=== PATIENT | male | born 1945 | race Caucasian/White ===

== ENCOUNTER 2023-04-24 14:48 | Emergency (ER) | payer MEDICARE, OTHER, SELFPAY ==
[2023-04-24 14:51] VITALS: BP 108/80
--- NOTE | 2023-04-24 16:45 | ED.GENMED ---
History of Present Illness
General
Chief Complaint: Fall
Source: patient
Exam Limitations: none
Time Seen by Provider: 04/24/23 16:25
Travel History
Have you had any contact with someone who has COVID-19?: No
Do you have any symptoms of coronavirus? Fever > 100 degrees, chills, cough, shortness of breath, sore throat, loss of taste or smell, muscle aches, or headache?: No
History of Present Illness
History of Present Illness:
78-year-old male on Coumadin for history of factor V Leyden and history of lung cancer presents with family who states patient started with confusion yesterday. 4 days ago he fell in the house and may have hit his head. He was asymptomatic until
yesterday. He has been forgetting things that are typically known to him. They noted him to be quite confused and repeating himself at times patient denies headache or neck pain. No recent fever. No cough. No chest pain or shortness of breath.
Patient is chronically on 3 L of oxygen. Patient has been under a lot of stress. No other complaints at this time.
Past History
Past History
ED Past Medical History: Cancer, COPD, HTN and Other (COPD, multiple PEs in the past, maintained on Coumadin, factor V Leiden deficiency, rheumatoid arthritis, movement disorder, chronic pain syndrome, Sjogren syndrome, insomnia RA)
ED Past Surgical History: Cardiac, Orthopedic (Left knee replacement, back fusion) and Other (Hernia repair)
Social History
Tobacco: Former smoker
Alcohol: None
Drug: None
Personal:
Living: with family
Employment: Retired
Family History
Family History: Other
Phy Exam
Physical Exam
Physical Exam:
General: Well-appearing male no acute respiratory distress
HEENT: Normocephalic atraumatic pupils equal round reactive to light TMs normal
Heart: Regular rate and rhythm no murmurs
Lungs: Clear to auscultation bilaterally no wheezing
Neurologic exam: Alert oriented to person and place no facial asymmetry no drift finger-nose [id number] intact.
Musculoskeletal exam: Cervical spine nontender good range of motion all extremities
Abdomen soft nontender nondistended no guarding or rebound normal bowel
Course
Orders/Labs/Results
Orders:
Orders
04/24/23 15:03
CT Head W/o Iv Contrast Urgent
Comment:
Reason For Exam: fell two days ago and hit head . on coumadin
04/24/23 16:41
CR Chest - 2 Views Urgent
Comment:
Reason For Exam: cough
04/24/23 16:46
COVID-19 Antigen Urgent
Source: Nasal Swab
Complete Blood Count/With Diff Urgent
Comprehensive Metabolic Panel Urgent
Influenza A+B Rapid Molecular Urgent
RENY Source: Nasal Swab
Specimen Description:
04/24/23 18:28
Urinalysis Reflex To Culture Urgent
Date Specimen was Collected: 04/24/23
Time Specimen was Collected: 16:56
04/24/23 19:36
Doxycycline [Vibramycin] 100 mg PO NOW STA
Abnormal Lab Results
04/24/23
16:46
RBC 3.15 L 10^6/uL
(4.70-6.10)
Hgb 10.6 L g/dL
(13.0-18.0)
Hct 31.7 L %
(39.0-52.0)
MCV 100.6 H fL
(80.0-94.0)
MCH 33.7 H pg
(27.0-31.0)
Absolute Lymphs (auto) 0.9 L 10^3/uL
(1.2-3.4)
Absolute Monos (auto) 0.7 H 10^3/uL
(0.1-0.6)
Lymphocytes % 11.9 L %
(20.5-51.1)
Monocytes % 9.6 H %
(1.7-9.3)
Potassium 5.2 H mmol/L
(3.5-5.1)
BUN 44 H mg/dl
(9-20)
Creatinine 1.4 H mg/dL
(0.7-1.3)
Glucose 103 H mg/dl
(70-99)
04/24/23 16:46
04/24/23 16:46
Vital Signs
Initial and Last Documented VS:
Initial Vital Signs
Temp Pulse Resp BP Pulse Ox
98.1 F 68 16 108/80 96
04/24/23 14:51 04/24/23 14:51 04/24/23 14:51 04/24/23 14:51 04/24/23 14:51
Last Documented Vital Signs
Temp Pulse Resp BP Pulse Ox
98.1 F 68 16 108/80 96
04/24/23 14:51 04/24/23 14:51 04/24/23 14:51 04/24/23 14:51 04/24/23 14:51
MDM/Problems Addressed
Differential Diagnosis Includes:
Confusion following head injury. Consider concussion versus intracranial hemorrhage given anticoagulated state. CT scan of the head was ordered which I reviewed and is negative. Patient started abruptly with confusion. Consider other sources
such as infectious source UTI versus COVID versus flu versus electrolyte abnormality. Also consider transient global amnesia.
*Critical Care Note
Total Time (30-74mins, 75-104mins- exclusive of procedures): Not Applicable
Update Note
Update Note:
Workup demonstrates possible right perihilar infiltrate. Patient is coughing. Not hypoxic on his normal 3 L of oxygen. Labs/vitals do not suggest sepsis. Will start doxycycline given penicillin allergy. Discussed other treatment options with
family they would prefer to him to go home and see how it goes. Stable for discharge
ED Attending Note
-
Portions of this chart may have been created with voice recognition software.� Occasional wrong word or��sound alike� substitutions may have occurred due to the inherent limitations of voice recognition software.
Discharge Plan
Departure
Patient Disposition: Home (Routine Discharge)
Date of Disposition: 04/24/23
Time of Disposition: 19:37
Patient with high blood pressure during this ER visit?: No
Discharge Problem:
Altered mental status
Instructions: Pneumonia
Prescriptions:
New
doxycycline hyclate 100 mg tablet
100 mg PO BID Qty: 14 0RF
No Action
fentanyl 50 MCG patch 72 hour
50 mcg transdermal Q48H
Patient Comments:
12/05/2022: last filled 11/23/22, 15 patches for 30 days from [facility], upper left chest by shoulder
sertraline 100 MG tablet
200 mg PO DAILY
albuterol sulfate 1 PUFF HFA aerosol inhaler
2 puff inhalation R Q4HPRN PRN (Reason: sob)
cevimeline [Evoxac] 30 MG capsule
30 mg PO QID
Patient Comments:
12/05/2022: Spouse has medication with them
warfarin [Jantoven] 5 MG tablet
2.5 mg PO FR@1800
Patient Comments:
hydromorphone 4 MG tablet
4 mg PO TID
Patient Comments:
12/05/2022: last filled 11/18/22, 90 tabs for 30 days from [facility]
folic acid 1 mg Tablet
1 mg PO DAILY
zolpidem 12.5 mg tablet,ext release multiphase
12.5 mg PO HS
Patient Comments:
12/05/2022: last filled 11/16/22, 30 tabs for 30 days from [facility]
therapeutic multivitamin Tablet
1 tab PO DAILY
warfarin 5 mg Tablet
5 mg PO SUMOTUWETHSA@1800
Incruse Ellipta 62.5 mcg/actuation Blister With Device
1 inh INHALATION R HS
sennosides [Senna Lax] 8.6 mg Tablet
17.2 mg PO HS Qty: 30 0RF
polyethylene glycol 3350 [HealthyLax] 17 gram Powder In Packet
17 g PO BID Qty: 30 0RF
midodrine 5 mg Tablet
5 mg PO Q4HPRN PRN (Reason: sbp<90) Qty: 30 0RF
pantoprazole 40 mg Tablet,Delayed Release (Dr/Ec)
40 mg PO DAILY Qty: 30 0RF
cyclobenzaprine 10 MG tablet
10 mg PO TID
Referrals:
Vignesh Guzman MD [Family Provider] -
Activity Restrictions/Additional Instructions:
Take antibiotics as directed. Please return here for worsening symptoms otherwise to follow-up with your treating physicians
Interventions
Interventions:
*Risk Screen - Suicide Last Done: 04/24/23 18:11
*Neglect/Abuse Screening Last Done: 04/24/23 18:11
*ED COVID-19 Vaccine History Last Done: 04/24/23 14:51
ED-Musculoskeletal Assessment Last Done: 04/24/23 15:58
ED- Neurological Assessment Last Done: 04/24/23 15:58
ED-Skin Assessment Last Done: 04/24/23 15:58
[2023-04-24 17:05] LABS: % Basophils 0.5 % (0-2); % Eosinophils 5.2 % (0-6); % Immature Granulocytes 0.4 % (0-0.5); % Lymphocytes 11.9 % (20.5-51.1); % Monocytes 9.6 % (1.7-9.3); % Neutrophils 72.4 % (42.2-75.2); Absolute Eosinophils 0.4 10^3/uL (0-0.7); Absolute Lymphocytes 0.9 10^3/uL (1.2-3.4); Absolute Monocytes 0.7 10^3/uL (0.1-0.6); Absolute Neutrophils 5.6 10^3/uL (1.4-6.5); Hematocrit 31.7 % (39.0-52.0); Hemoglobin 10.6 g/dL (13.0-18.0); Mean Corp Hgb Conc. 33.4 g/dL (33.0-37.0); Mean Corpuscular Hgb 33.7 pg (27.0-31.0); Mean Corpuscular Volume 100.6 fL (80.0-94.0); Nucleated Red Blood Cells % 0 % (-); Platelet Count 185 10^3/uL (130-400); Red Blood Cell Count 3.15 10^6/uL (4.70-6.10); Red Cell Dist. Width 14.3 % (11.5-14.5); White Blood Cell Count 7.7 10^3/uL (4.8-10.8)
[2023-04-24 17:13] LABS: COVID-19 Antigen Negative (Negative)
[2023-04-24 17:17] LABS: ALT (SGPT) 19 U/L (0-50); AST (SGOT) 32 U/L (17-59); Albumin 4.2 g/dl (3.5-5.0); Alkaline Phosphatase 83 U/L (38-126); Blood Urea Nitrogen 44 mg/dl (9-20); Calcium 9.2 mg/dl (8.4-10.2); Carbon Dioxide 27 mmol/L (22-30); Chloride 103 mmol/L (98-107); Glucose 103 mg/dl (70-99); Potassium 5.2 mmol/L (3.5-5.1); Sodium 137 mmol/L (135-145); Total Bilirubin 0.6 mg/dl (0.2-1.3); Total Protein 7.3 g/dl (6.3-8.2); eGFR 51.13
[2023-04-24 18:43] LABS: Urine Albumin Negative (Neg - Trace); Urine Bilirubin Negative (Negative); Urine Character Clear (Clear); Urine Color Yellow; Urine Glucose Negative (Negative); Urine Ketone Negative (Negative); Urine Leukocyte Negative (Negative); Urine Nitrite Negative (Negative); Urine Occult Blood Negative (Negative); Urine Urobilinogen Negative (Neg - 1+)
[2023-04-24] MEDS: VIBRAMYCIN 100 MG PO (19:47)
== END 2023-04-24 20:01 | disposition home or self-care (01) ==
LOC: EMR 14:48
PROVIDERS: Physician Assistant; EMERGENCY PHYSICIAN Emergency Medicine; FAMILY PHYSICIAN Family Medicine
DX: R41.82 Altered mental status, unspecified (principal); J44.9 Chronic obstructive pulmonary disease, unspecified; I10 Essential (primary) hypertension; D68.51 Activated protein C resistance; M06.9 Rheumatoid arthritis, unspecified; M35.00 Sjogren syndrome, unspecified; G89.29 Other chronic pain; Z79.01 Long term (current) use of anticoagulants; Z85.118 Personal history of other malignant neoplasm of bronchus and lung; Z87.891 Personal history of nicotine dependence
CPT/HCPCS: 99284; 70450; 71046; 80053; 81003; 85025; 87502; 87811

== ENCOUNTER 2023-06-11 00:49 | Emergency (ER) | payer MEDICARE, OTHER, SELFPAY ==
[2023-06-11] VITALS (8 sets, daily range): BP systolic 89–112; BP diastolic 44–83; BMI 27.2
[2023-06-11 01:41] LABS: % Basophils 0.3 % (0-2); % Immature Granulocytes 0.4 % (0-0.5); % Lymphocytes 5.8 % (20.5-51.1); % Monocytes 3.3 % (1.7-9.3); % Neutrophils 89.2 % (42.2-75.2); Absolute Eosinophils 0.1 10^3/uL (0-0.7); Absolute Lymphocytes 0.6 10^3/uL (1.2-3.4); Absolute Monocytes 0.3 10^3/uL (0.1-0.6); Absolute Neutrophils 8.8 10^3/uL (1.4-6.5); Hematocrit 25.1 % (39.0-52.0); Hemoglobin 8.6 g/dL (13.0-18.0); Mean Corp Hgb Conc. 34.3 g/dL (33.0-37.0); Mean Corpuscular Hgb 33.6 pg (27.0-31.0); Mean Platelet Volume 9.1 fL (7.4-10.4); Nucleated Red Blood Cells % 0 % (-); Platelet Count 144 10^3/uL (130-400); Red Blood Cell Count 2.56 10^6/uL (4.70-6.10); Red Cell Dist. Width 14.4 % (11.5-14.5); White Blood Cell Count 9.9 10^3/uL (4.8-10.8)
[2023-06-11 01:55] LABS: Lactic Acid 1.2 mmol/L (0.7-2.0)
[2023-06-11 01:56] LABS: ALT (SGPT) 15 U/L (0-50); AST (SGOT) 22 U/L (17-59); Albumin 3.9 g/dl (3.5-5.0); Alkaline Phosphatase 77 U/L (38-126); Blood Urea Nitrogen 37 mg/dl (9-20); Calcium 8.6 mg/dl (8.4-10.2); Carbon Dioxide 20 mmol/L (22-30); Chloride 105 mmol/L (98-107); Estimated Creatinine Clearance 53 ml/min; Glucose 118 mg/dl (70-99); Potassium 3.9 mmol/L (3.5-5.1); Sodium 134 mmol/L (135-145); Total Bilirubin 0.8 mg/dl (0.2-1.3); Total Protein 6.8 g/dl (6.3-8.2); eGFR > 60.00
[2023-06-11 02:05] LABS: COVID-19 Antigen Negative (Negative)
[2023-06-11] MEDS: TYLENOL 650 MG PO (03:17)
--- NOTE | 2023-06-11 04:23 | ED.GENMED ---
History of Present Illness
General
Chief Complaint: Breathing Problem
Source: patient and ambulance crew
Exam Limitations: none
Time Seen by Provider: 06/11/23 02:30
Nursing documentation reviewed up to this point in time: agreed with
Travel History
Have you had any contact with someone who has COVID-19?: No
Do you have any symptoms of coronavirus? Fever > 100 degrees, chills, cough, shortness of breath, sore throat, loss of taste or smell, muscle aches, or headache?: No
History of Present Illness
History of Present Illness:
Patient with history of lung cancer on home oxygen (3L via [place]), status post new chemotherapy treatment 3 days ago, presents to ED from home secondary to cough with shortness of breath. However, upon arrival in ED, patient is not complaining of
cough or shortness of breath, but is complaining of left flank/lower back pain since yesterday morning. Patient was given MiraLAX by his , with consideration for potential constipation causing his pain. Patient has passed 'liquid', without
improvement symptoms. Denies fever. Denies trauma. Denies urinary or bowel incontinence. Denies loss of sensation or weakness. Denies previous history of back pain. Patient states that his last imaging study did not reveal any metastases from
his lung cancer.
Past History
Past History
ED Past Medical History: Cancer, COPD, HTN and Other (COPD, multiple PEs in the past, maintained on Coumadin, factor V Leiden deficiency, rheumatoid arthritis, movement disorder, chronic pain syndrome, Sjogren syndrome, insomnia RA)
ED Past Surgical History: Cardiac, Orthopedic (Left knee replacement, back fusion) and Other (Hernia repair)
Social History
Tobacco: Former smoker
Alcohol: None
Drug: None
Personal:
Living: with family
Employment: Retired
Family History
Family History: Other
Review of Systems
Review of Systems
Allergies reviewed?: Yes
All Other Systems: ROS reviewed and negative except as documented in HPI and ROS
Constitutional: Reports no symptoms; Denies fever
EENT: Reports no symptoms
Respiratory: Reports no symptoms
Cardiac: Reports no symptoms
ABD/GI: Reports abdominal pain
: Reports flank pain
Musculoskeletal: Reports back pain
Skin: Reports no symptoms
Neurological: Reports no symptoms
Phy Exam
Physical Exam
Physical Exam:
Physical Exam
General: mild painful distress, not acutely ill. afebrile.
Head: nc/at. eomi
Neck: supple. no meningeal signs.
Heart: s1/s2 regular rate and rhythm, no murmur. equal radial pulses.
Lungs: no acute respiratory distress. clear bilaterally
Abdomen: normal bowel sounds. mild LLQ/flank tenderness to palpation.
Neuro: alert and oriented. no focal neurological deficits
Skin: no rash
Psychiatric: well kept. interactive and cooperative
Extremities: no edema.
Scores
Heart Failure Risk
Heart Failure Risk Score: Not Applicable
Course
Orders/Labs/Results
Orders:
Orders
06/11/23 01:18
Complete Blood Count/With Diff Urgent
Comprehensive Metabolic Panel Urgent
Lactic Acid Urgent
Blood Culture Urgent
RENY Source: Blood/Venous
Specimen Description:
06/11/23 01:28
COVID-19 Antigen Urgent
Source: Nasal Swab
Influenza A+B Rapid Molecular Urgent
RENY Source: Nasal Swab
Specimen Description:
06/11/23 02:29
CR Chest - 2 Views Urgent
Comment:
Reason For Exam: fever/cough/sob
06/11/23 03:13
Acetaminophen [Tylenol] 650 mg PO NOW STA
06/11/23 03:58
CT Abd/pel Without Iv Or Oral Urgent
Comment:
Reason For Exam: left flank pain
06/11/23 05:10
Ketorolac [Toradol] 15 mg IV NOW STA
06/11/23 05:11
Dexamethasone Sod Phosphate [Decadron] 10 mg IV NOW STA
06/11/23 05:28
Urinalysis Reflex To Culture Urgent
Date Specimen was Collected: 06/11/23
Time Specimen was Collected: 05:16
06/11/23 07:08
Heparin Pf [Heparin Lock Flush] 500 unit IV NOW ONE
Abnormal Lab Results
06/11/23
01:18
RBC 2.56 L 10^6/uL
(4.70-6.10)
Hgb 8.6 L g/dL
(13.0-18.0)
Hct 25.1 L %
(39.0-52.0)
MCV 98.0 H fL
(80.0-94.0)
MCH 33.6 H pg
(27.0-31.0)
Absolute Neuts (auto) 8.8 H 10^3/uL
(1.4-6.5)
Absolute Lymphs (auto) 0.6 L 10^3/uL
(1.2-3.4)
Neutrophils % 89.2 H %
(42.2-75.2)
Lymphocytes % 5.8 L %
(20.5-51.1)
Sodium 134 L mmol/L
(135-145)
Carbon Dioxide 20 L mmol/L
(22-30)
BUN 37 H mg/dl
(9-20)
Glucose 118 H mg/dl
(70-99)
06/11/23 01:18
06/11/23 01:18
Vital Signs
Initial and Last Documented VS:
Initial Vital Signs
Temp Pulse Ox
100.9 F H 96
06/11/23 00:53 06/11/23 00:53
Last Documented Vital Signs
Temp Pulse Resp BP Pulse Ox
99.2 F 74 16 104/54 100
06/11/23 03:30 06/11/23 07:08 06/11/23 07:08 06/11/23 07:08 06/11/23 07:08
MDM/Problems Addressed
MDM/Problems Addressed:
Pt without any respiratory distress, nor requiring any further oxygen requirement.
CT abd/pel pending due to left sided abdominal/flank/back pain
CT abd/pel: no acute findings.
Pt with nonspecific back pain, either musculoskeletal vs chemotherapy related vs severe constipation. Advised continual bowel regimen at home along with close pcp/oncology f/u.
Discussed with spouse who will come and sweet pickle maker the patient.
Advised return to ED with worsening symptoms.
*Critical Care Note
Total Time (30-74mins, 75-104mins- exclusive of procedures): Not Applicable
ED Attending Note
-
Portions of this chart may have been created with voice recognition software.� Occasional wrong word or��sound alike� substitutions may have occurred due to the inherent limitations of voice recognition software.
Discharge Plan
Departure
Patient Disposition: Home (Routine Discharge)
Date of Disposition: 06/11/23
Time of Disposition: 05:14
Patient with high blood pressure during this ER visit?: Yes
Discharge Problem:
Back pain
Instructions: Back Pain
Prescriptions:
No Action
fentanyl 50 MCG patch 72 hour
50 mcg transdermal Q48H
Patient Comments:
12/05/2022: last filled 11/23/22, 15 patches for 30 days from [facility], upper left chest by shoulder
sertraline 100 MG tablet
200 mg PO DAILY
albuterol sulfate 1 PUFF HFA aerosol inhaler
2 puff inhalation R Q4HPRN PRN (Reason: sob)
cevimeline [Evoxac] 30 MG capsule
30 mg PO QID
Patient Comments:
12/05/2022: Spouse has medication with them
warfarin [Jantoven] 5 MG tablet
2.5 mg PO FR@1800
Patient Comments:
hydromorphone 4 MG tablet
4 mg PO TID
Patient Comments:
12/05/2022: last filled 11/18/22, 90 tabs for 30 days from [facility]
folic acid 1 mg Tablet
1 mg PO DAILY
zolpidem 12.5 mg tablet,ext release multiphase
12.5 mg PO HS
Patient Comments:
12/05/2022: last filled 11/16/22, 30 tabs for 30 days from [facility]
therapeutic multivitamin Tablet
1 tab PO DAILY
warfarin 5 mg Tablet
5 mg PO SUMOTUWETHSA@1800
Incruse Ellipta 62.5 mcg/actuation Blister With Device
1 inh INHALATION R HS
sennosides [Senna Lax] 8.6 mg Tablet
17.2 mg PO HS Qty: 30 0RF
polyethylene glycol 3350 [HealthyLax] 17 gram Powder In Packet
17 g PO BID Qty: 30 0RF
midodrine 5 mg Tablet
5 mg PO Q4HPRN PRN (Reason: sbp<90) Qty: 30 0RF
pantoprazole 40 mg Tablet,Delayed Release (Dr/Ec)
40 mg PO DAILY Qty: 30 0RF
doxycycline hyclate 100 mg tablet
100 mg PO BID Qty: 14 0RF
cyclobenzaprine 10 MG tablet
10 mg PO TID
Activity Restrictions/Additional Instructions:
As discussed, please follow-up with your primary care physician and/or oncologist for reevaluation. In ED, blood work, chest x-ray, and CT scan did not reveal any acute abnormalities. Please consider returning to ED with worsening symptoms.
Interventions
Interventions:
*Risk Screen - Suicide Last Done: 06/11/23 00:53
*General Assessment Last Done: 06/11/23 00:53
*Neglect/Abuse Screening Last Done: 06/11/23 00:53
ED- Fall Risk Assessment Last Done: 06/11/23 01:02
*ED COVID-19 Vaccine History Last Done: 06/11/23 01:02
*Nursing Disposition Last Done: 06/11/23 07:55
ED- Cardiac Assessment Last Done: 06/11/23 01:02
ED- Pulmonary Assessment Last Done: 06/11/23 01:02
Discharge Date and Time
Discharge Date/Time: 06/11/23 07:55
Print Language: ARABIC
[2023-06-11] MEDS: TORADOL 15 MG IV (05:26)
[2023-06-11] MEDS: DECADRON 10 MG IV (05:27)
[2023-06-11 05:43] LABS: Urine Albumin Negative (Neg - Trace); Urine Bilirubin Negative (Negative); Urine Character Clear (Clear); Urine Color Yellow; Urine Glucose Negative (Negative); Urine Ketone Negative (Negative); Urine Leukocyte Negative (Negative); Urine Nitrite Negative (Negative); Urine Occult Blood Negative (Negative); Urine Urobilinogen Negative (Neg - 1+)
== END 2023-06-11 07:55 | disposition home or self-care (01) ==
LOC: EMR 00:49
PROVIDERS: Student in an Organized Health Care Education/Training Program; EMERGENCY PHYSICIAN Emergency Medicine; FAMILY PHYSICIAN Family Medicine
DX: M54.9 Dorsalgia, unspecified (principal); I10 Essential (primary) hypertension; Z79.01 Long term (current) use of anticoagulants; Z99.81 Dependence on supplemental oxygen; Z11.52 Encounter for screening for COVID-19; Z87.891 Personal history of nicotine dependence
CPT/HCPCS: 99285; 96374; 96375 ×2; 71046; 74176; 80053; 81003; 83605; 85025; 87040; 87502; 87811

== ENCOUNTER → 2023-09-07 06:53 | Outpatient (REF) | payer MEDICARE, OTHER, SELFPAY ==
[2023-09-07 07:35] VITALS: BP 110/95; BP_SYST 76
[2023-09-07 07:44] LABS: INR 1.85; PT 21.2 Sec (11.4-14.6)
== END ==
LOC: RADI 06:53
PROVIDERS: ATTENDING PHYSICIAN Internal Medicine Hematology & Oncology; FAMILY PHYSICIAN Family Medicine
DX: C34.12 Malignant neoplasm of upper lobe, left bronchus or lung (principal); C34.11 Malignant neoplasm of upper lobe, right bronchus or lung; R59.0 Localized enlarged lymph nodes
CPT/HCPCS: 36415; 71260; 85610; Q9967

== ENCOUNTER 2024-01-28 14:41 | Emergency (ER) | payer MEDICARE, OTHER, SELFPAY ==
[2024-01-28 14:45] VITALS: BP 114/84
--- NOTE | 2024-01-28 16:25 | ED.GENMED ---
History of Present Illness
General
Chief Complaint: Eye Problems
Source: patient and family
Time Seen by Provider: 01/28/24 16:02
History of Present Illness
History of Present Illness:
This patient is an 79-year-old male who is actively being treated for lung cancer who presents emergency department with complaints of a burning discomfort in bilateral eyes for about a week. It started with a foreign body sensation, described as
'like an eyelash in my eye', on the right eye and then the left. Shortly after he developed this persistent burning pain associated with watery discharge and blurry vision. He denies purulent discharge but states that his eyes seem to be crusted
over in the morning. He denies headache, nausea, vomiting, diplopia. His vision is blurry. He was prescribed antibiotic drops over the phone by his doctor with little relief of symptoms. Patient denies other complaints including recent trauma,
recent UV light exposure, exposure to foreign body, etc.
Past History
Past History
ED Past Medical History: Cancer, COPD, HTN and Other (COPD, multiple PEs in the past, maintained on Coumadin, factor V Leiden deficiency, rheumatoid arthritis, movement disorder, chronic pain syndrome, Sjogren syndrome, insomnia RA)
ED Past Surgical History: Cardiac, Orthopedic (Left knee replacement, back fusion) and Other (Hernia repair)
Social History
Tobacco: Former smoker
Alcohol: None
Drug: None
Personal:
Living: with family
Employment: Retired
Family History
Family History: Other
Phy Exam
Physical Exam
Physical Exam:
GENERAL: Alert , appears uncomfortable but pleasant, restless in the bed which is typical as per family
EYE: mild obj photophobia, EOMI, no discharge, no conj injx. R pupil round and reactive, L pupil asx and reactive (posts urgical). S/p flouescein stain, there is are large abrasions noted centrally bilaterally. No fb noted with slit lamp exam, no
'rust ring' or opacification.
NECK: Supple, no significant adenopathy.
ENT: o/p clr, mmm.
CARDIAC: Regular rate and rhythm .
ABDOMEN: Soft, without focal tenderness, no r/g, no cvat
NEUROLOGICAL: Alert and oriented, no focal neuro deficits
SKIN: Warm and dry, skin intact.
MUSCULOSKELETAL: No edema, well perfused.
PSYCH: Normal and appropriate interaction.
Course
Vital Signs
Initial and Last Documented VS:
Initial Vital Signs
Temp Pulse Resp BP
98.1 F 98 18 114/84
01/28/24 14:45 01/28/24 14:45 01/28/24 14:45 01/28/24 14:45
Last Documented Vital Signs
Temp Pulse Resp BP Pulse Ox
98.1 F 97 18 114/84 99
01/28/24 14:45 01/28/24 15:57 01/28/24 14:45 01/28/24 14:45 01/28/24 15:57
*Critical Care Note
Total Time (30-74mins, 75-104mins- exclusive of procedures): Not Applicable
Update Note
Update Note:
Patient presents to the Emergency Department with __bilateral eye discomfort and blurry vision
Number and Complexity of Problems Addressed at the Encounter
� Chronic conditions affecting care:
� Acute Exacerbation and/or Progression of Chronic Illness:
� Differential Diagnosis includes:conjunctivitis, fb, corneal abrasion, uveitis, etc etc.
Amount and/or Complexity of Data to be Reviewed and Analyzed
� I performed an independent evaluation of and my interpretation is:
EKG:
CT:
Xrays:
Laboratory Studies:
Other:
� Review of other/old records reveals:
� Clinical information was obtained by an independent historian: and daughter
� Prescriptions/Medications Considered but not given:
� Further testing considered but not performed:
Risk of Complications and/or Morbidity or Mortality of Patient Management
� Social determinants of health affecting care:
� Discussion with other providers (PCP, Hospitalists, Consultants, etc):
� Escalation of care including admission/observation vs risk of discharge considered: Note: pox obtained by me katey at 94% on his oxygen. No resp distress. I tried to onctact their ophtho, Dr Omayra Shrestha, [facility] office
closed and no patient coordinator front desk option but to leave a message but does not allow message to be recorded. Long d/w family re:import of close f/u with her on Wednesday. In meantime, continue abx drops, avoid rubbing eyes (he frequently does with a tissue in his
hand as per family). Pt on mult narcs already, weighing r/b, decided not to increase/add more.
ED Attending Note
-
Portions of this chart may have been created with voice recognition software.� Occasional wrong word or��sound alike� substitutions may have occurred due to the inherent limitations of voice recognition software.
Discharge Plan
Departure
Patient Disposition: Home (Routine Discharge)
Date of Disposition: 01/28/24
Time of Disposition: 16:33
Patient with high blood pressure during this ER visit?: Yes
Condition: Good
Discharge Problem:
Abrasion, corneal
Instructions: Corneal Abrasion (DC), BLOOD PRESSURE
Prescriptions:
New
gentamicin 0.3 % drops
2 drp ophthalmic (eye) Q4H Qty: 10 0RF
No Action
fentanyl 50 MCG patch 72 hour
50 mcg transdermal Q48H
Patient Comments:
12/05/2022: last filled 11/23/22, 15 patches for 30 days from [facility], upper left chest by shoulder
sertraline 100 MG tablet
200 mg PO DAILY
albuterol sulfate 1 PUFF HFA aerosol inhaler
2 puff inhalation R Q4HPRN PRN (Reason: sob)
cevimeline [Evoxac] 30 MG capsule
30 mg PO QID
Patient Comments:
12/05/2022: Spouse has medication with them
warfarin [Jantoven] 5 MG tablet
2.5 mg PO [id number]
Patient Comments:
alternates with 5mg
hydromorphone 4 MG tablet
4 mg PO TID
Patient Comments:
12/05/2022: last filled 11/18/22, 90 tabs for 30 days from [facility]
folic acid 1 mg Tablet
1 mg PO DAILY
zolpidem 12.5 mg tablet,ext release multiphase
12.5 mg PO HS
Patient Comments:
12/05/2022: last filled 11/16/22, 30 tabs for 30 days from [facility]
therapeutic multivitamin Tablet
1 tab PO DAILY
warfarin 5 mg Tablet
5 mg PO QTUTHSA
Patient Comments:
alternates with 2.5mg
cyclobenzaprine 10 MG tablet
10 mg PO TID
Referrals:
Vignesh Guzman MD [Family Provider] -
Omayra Shrestha MD [Non-Admitting Privileges] - Next open appointment
Activity Restrictions/Additional Instructions:
PLEASE SEE YOUR EYE DOCTOR SOON POSSIBLE. IF YOU DEVELOP FEVER, INCREASING/NEW PAIN, DRAINAGE, HEADACHE, VOMITING, OR OTHER WORRISOME SIGNS, GO TO THE ER IMMEDIATELY!
Interventions
Interventions:
*Risk Screen - Suicide Last Done: 01/28/24 14:49
*General Assessment Last Done: 01/28/24 18:08
*Neglect/Abuse Screening Last Done: 01/28/24 14:49
*Nursing Disposition Last Done: 01/28/24 18:08
Discharge Date and Time
Discharge Date/Time: 01/28/24 18:09
Print Language: AFGHAN
== END 2024-01-28 18:09 | disposition home or self-care (01) ==
LOC: EMR 14:41
PROVIDERS: EMERGENCY PHYSICIAN Emergency Medicine; FAMILY PHYSICIAN Family Medicine
DX: S05.02XA Injury of conjunctiva and corneal abrasion without foreign body, left eye, initial encounter (principal); S05.01XA Injury of conjunctiva and corneal abrasion without foreign body, right eye, initial encounter; X58.XXXA Exposure to other specified factors, initial encounter; J44.9 Chronic obstructive pulmonary disease, unspecified; I10 Essential (primary) hypertension; D68.51 Activated protein C resistance; G89.4 Chronic pain syndrome; M35.00 Sjogren syndrome, unspecified; M06.9 Rheumatoid arthritis, unspecified; C34.90 Malignant neoplasm of unspecified part of unspecified bronchus or lung; Z79.01 Long term (current) use of anticoagulants; Z87.891 Personal history of nicotine dependence; Z96.652 Presence of left artificial knee joint
CPT/HCPCS: 99282